=== PATIENT | male | born 1965 | race Caucasian/White ===

== ENCOUNTER → 2018-01-03 | Outpatient (CLI) | payer MEDICARE ==
[2018-01-03 10:13] LABS: BASO # 0.1 x10^3/uL (0.0-0.2); BASO % 1 % (0-3); EOS # 0.2 x10^3/uL (0.0-0.7); EOS % 4 % (0-3); HEMATOCRIT 50.5 % (39.0-53.0); HEMOGLOBIN 17.5 g/dL (13.0-17.5); LYMPH # 2.3 x10^3/uL (1.0-4.8); LYMPH % 40 % (24-48); MEAN CORPUSCULAR HEMOGLOBIN 32 pg (25-35); MEAN CORPUSCULAR HGB CONC 35 g/dL (31-37); MEAN CORPUSCULAR VOLUME 91 fL (79-100); MONO # 0.6 x10^3/uL (0.0-1.1); MONO % 10 % (0-9); NEUT # 2.6 x10^3uL (1.8-7.7); NEUT % 45 % (31-73); PLATELET COUNT 217 x10^3/uL (140-400); RED BLOOD COUNT 5.57 x10^6/uL (4.30-5.70); WHITE BLOOD COUNT 5.8 x10^3/uL (4.0-11.0)
[2018-01-03 14:10] LABS: ALBUMIN 3.9 g/dL (3.4-5.0); ALBUMIN/GLOBULIN RATIO 1.2 (1.0-1.7); ALK PHOS 93 U/L (46-116); ALT (SGPT) 182 U/L (16-63); ANION GAP 9 (6-14); AST (SGOT) 63 U/L (15-37); BLOOD UREA NITROGEN 11 mg/dL (8-26); BUN/CREATININE RATIO 14 (6-20); CALCIUM 9.8 mg/dL (8.5-10.1); CARBON DIOXIDE 27 mmol/L (21-32); CHLORIDE 105 mmol/L (98-107); CREATININE 0.8 mg/dL (0.7-1.3); GFR 101.1; GLUCOSE 88 mg/dL (70-99); SODIUM 141 mmol/L (136-145); TOTAL BILIRUBIN 0.7 mg/dL (0.2-1.0); TOTAL PROTEIN 7.1 g/dL (6.4-8.2)
[2018-01-03 14:11] LABS: VAL ACID 34 mcg/mL (50-100)
== END | disposition home or self-care (01) ==
LOC: LAB 08:42
PROVIDERS: ATTEND Clinical Nurse Specialist Psychiatric/Mental Health, Adult
DX: Z79.899 Other long term (current) drug therapy (principal)
CPT/HCPCS: 36415; 80053; 80061; 80164; 84146; 85025

== ENCOUNTER → 2018-11-27 | Outpatient (CLI) | payer MEDICARE ==
[2018-11-27 09:43] LABS: BASO # 0.1 x10^3/uL (0.0-0.2); BASO % 1 % (0-3); EOS # 0.2 x10^3/uL (0.0-0.7); EOS % 4 % (0-3); LYMPH # 2.2 x10^3/uL (1.0-4.8); LYMPH % 34 % (24-48); MEAN CORPUSCULAR HEMOGLOBIN 31 pg (25-35); MEAN CORPUSCULAR HGB CONC 35 g/dL (31-37); MEAN CORPUSCULAR VOLUME 90 fL (79-100); MONO # 0.7 x10^3/uL (0.0-1.1); MONO % 10 % (0-9); NEUT # 3.3 x10^3uL (1.8-7.7); NEUT % 51 % (31-73); PLATELET COUNT 236 x10^3/uL (140-400); RED BLOOD COUNT 5.44 x10^6/uL (4.30-5.70); RED CELL DISTRIBUTION WIDTH 13.4 % (11.5-14.5); WHITE BLOOD COUNT 6.5 x10^3/uL (4.0-11.0)
[2018-11-27 09:57] LABS: ALBUMIN 3.7 g/dL (3.4-5.0); ALBUMIN/GLOBULIN RATIO 1.2 (1.0-1.7); ALK PHOS 96 U/L (46-116); ALT (SGPT) 113 U/L (16-63); ANION GAP 7 (6-14); AST (SGOT) 37 U/L (15-37); BLOOD UREA NITROGEN 11 mg/dL (8-26); BUN/CREATININE RATIO 14 (6-20); CALCIUM 9.5 mg/dL (8.5-10.1); CARBON DIOXIDE 31 mmol/L (21-32); CHLORIDE 105 mmol/L (98-107); CREATININE 0.8 mg/dL (0.7-1.3); GFR 100.7; GLUCOSE 96 mg/dL (70-99); POTASSIUM 4.2 mmol/L (3.5-5.1); SODIUM 143 mmol/L (136-145); TOTAL BILIRUBIN 0.5 mg/dL (0.2-1.0); TOTAL PROTEIN 6.9 g/dL (6.4-8.2); VAL ACID 37 mcg/mL (50-100)
== END | disposition home or self-care (01) ==
LOC: LAB 09:12
PROVIDERS: ATTEND Clinical Nurse Specialist Psychiatric/Mental Health, Adult
DX: Z79.899 Other long term (current) drug therapy (principal)
CPT/HCPCS: 36415; 80053; 80061; 80164; 84146; 85025

== ENCOUNTER → 2019-05-30 | Outpatient (CLI) | payer MEDICARE ==
[2019-05-30 08:57] LABS: BASO # 0.1 x10^3/uL (0.0-0.2); BASO % 1 % (0-3); EOS # 0.3 x10^3/uL (0.0-0.7); EOS % 5 % (0-3); HEMOGLOBIN 17.2 g/dL (13.0-17.5); LYMPH # 2.4 x10^3/uL (1.0-4.8); LYMPH % 38 % (24-48); MEAN CORPUSCULAR HEMOGLOBIN 31 pg (25-35); MEAN CORPUSCULAR HGB CONC 34 g/dL (31-37); MEAN CORPUSCULAR VOLUME 92 fL (79-100); MONO # 0.6 x10^3/uL (0.0-1.1); MONO % 10 % (0-9); NEUT # 2.9 x10^3uL (1.8-7.7); NEUT % 46 % (31-73); PLATELET COUNT 228 x10^3/uL (140-400); RED BLOOD COUNT 5.58 x10^6/uL (4.30-5.70); RED CELL DISTRIBUTION WIDTH 13.5 % (11.5-14.5); WHITE BLOOD COUNT 6.2 x10^3/uL (4.0-11.0)
[2019-05-30 08:59] LABS: ALBUMIN 3.7 g/dL (3.4-5.0); ALBUMIN/GLOBULIN RATIO 1.2 (1.0-1.7); ALK PHOS 97 U/L (46-116); ALT (SGPT) 135 U/L (16-63); ANION GAP 6 (6-14); AST (SGOT) 62 U/L (15-37); BLOOD UREA NITROGEN 11 mg/dL (8-26); BUN/CREATININE RATIO 14 (6-20); CARBON DIOXIDE 28 mmol/L (21-32); CHLORIDE 105 mmol/L (98-107); CREATININE 0.8 mg/dL (0.7-1.3); GFR 100.7; GLUCOSE 91 mg/dL (70-99); POTASSIUM 3.8 mmol/L (3.5-5.1); SODIUM 139 mmol/L (136-145); TOTAL BILIRUBIN 0.7 mg/dL (0.2-1.0); TOTAL PROTEIN 6.9 g/dL (6.4-8.2)
[2019-05-30 09:00] LABS: VAL ACID 41 mcg/mL (50-100)
== END | disposition home or self-care (01) ==
LOC: LAB 08:05
PROVIDERS: ATTEND Clinical Nurse Specialist Psychiatric/Mental Health, Adult
DX: Z79.899 Other long term (current) drug therapy (principal)
CPT/HCPCS: 36415; 80053; 80061; 80164; 82140; 84146; 85025

== ENCOUNTER → 2019-09-23 | Outpatient (CLI) | payer MEDICARE | END | disposition home or self-care (01) | LOC: LAB 08:12 | PROVIDERS: ATTEND Clinical Nurse Specialist Psychiatric/Mental Health, Adult | DX: F25.0 Schizoaffective disorder, bipolar type (principal) | CPT/HCPCS: 36415; 84146 ==

== ENCOUNTER 2019-11-30 16:32 | Emergency (ER) | payer MEDICARE ==
[~2019-11-30] VITALS: Ht 188 cm; Wt 90.7 kg
--- NOTE | 2019-11-30 17:09 | PHYS DOC ---
Past History Past Medical History: Bipolar, Depression, Schizophrenia (LIZZETH THAKUR MD) Adult General Chief Complaint Chief Complaint: PSYCH EVALUATION HPI HPI 54-year-old male accompanied by the [facility]'s office presents for a court-ordered psychiatric evaluation. Patient has been refusing to take his psychiatric medications. He has diagnosed schizophrenia. The patient has cause lots of trouble his residence and has had the police another several times. His guardian went to the courts and requested this evaluation and likely admission. The patient admits that this is true. He has no medical complaints at this time. (AUBREY ZAMAN DO) Review of Systems Review of Systems Constitutional: Denies fever or chills [] Eyes: Denies change in visual acuity, redness, or eye pain [] HENT: Denies nasal congestion or sore throat [] Respiratory: Denies cough or shortness of breath [] Cardiovascular: No additional information not addressed in HPI [] GI: Denies abdominal pain, nausea, vomiting, bloody stools or diarrhea [] : Denies dysuria or hematuria [] Musculoskeletal: Denies back pain or joint pain [] Integument: Denies rash or skin lesions [] Neurologic: Denies headache, focal weakness or sensory changes [] Endocrine: Denies polyuria or polydipsia [] All other systems were reviewed and found to be within normal limits, except as documented in this note. (AUBREY ZAMAN DO) Physical Exam Physical Exam Constitutional: Well developed, well nourished, no acute distress, non-toxic appearance. [] HENT: Normocephalic, atraumatic, bilateral external ears normal, oropharynx moist, no oral exudates, nose normal. [] Eyes: PERRLA, EOMI, conjunctiva normal, no discharge. [] Neck: Normal range of motion, no tenderness, supple, no stridor. [] Cardiovascular:Heart rate regular rhythm, 3/6 systolic murmur [] Lungs & Thorax: Bilateral breath sounds clear to auscultation [] Abdomen: Bowel sounds normal, soft, no tenderness, no masses, no pulsatile masses. [] Skin: Warm, dry, no erythema, no rash. [] Back: No tenderness, no CVA tenderness. [] Extremities: No tenderness, no cyanosis, no clubbing, ROM intact, no edema. [] Neurologic: Alert and oriented X 3, normal motor function, normal sensory function, no focal deficits noted. [] Psychologic: Affect flat, mood normal. [] (AUBREY ZAMAN DO) EKG EKG [] (AUBREY ZAMAN DO) EKG I interpretation EKG shows a piece of elevated junctional rhythm at 128 bpm. Some wavering baseline. No findings of acute STEMI with contralateral changes. (LIZZETH THAKUR MD) Radiology/Procedures Radiology/Procedures [] (AUBREY ZAMAN DO) Course & Med Decision Making Course & Med Decision Making Pertinent Labs and Imaging studies reviewed. (See chart for details) Patient's workup and psychiatric evaluation is pending. I'm signing him out to Dr. Thakur at 1820. [] (AUBREY ZAMAN DO) Course & Med Decision Making Awaiting tele. psych. eval at 1830. See Tele Psych . report Dr. Paola Pizarro- Recommend in pt. psych. hospital admission until stabilized. ( Involuntary) 2004 Hrs. Counseling Center also recommending in hospital medication stabilization. Pt. agitation- is decreased after Zyprexa and Ativan. Patient was removed from from hard cuffs bilaterally [employer]. Patient requested restraints because he felt like he still may strike out and hurt someone.. Patient put in soft restraints pending placement by counseling center. 2200 hrs. See Honorable Indra Rojas- Inside Sales Person order. Re- assessment by counseling center at 1:15 hours. See re-assessment by Aubrey Ruiz LMSW 05:16 hrs. Check out to Dr. Moya at shift change. Informed by Nursing pt. left the building- 1930hrs. Notification to Brother and Police department to be made. Impression: 1. Schizoaffective Disorder- Bipolar 2. Agitation/ Angelique 3. Hx. of Depression 4. Mild Hypokalemia 3.3 5. Hypertension 6. Hx of Non-compliance with Meds 7. Mild elevation of AST/ALT 60/167 8. Sub- Therapeutic Level Valproic Acid = 3 (LIZZETH THAKUR MD) Course & Med Decision Making Still awaiting for placement. Patient has been doing fine in the ER, DID NOT CAUSE ANY PROBLEM. HE HAS BEEN PLEASANT AND COOPERATIVE. TRANSFERRED CARE OVER TO DR. RASHAWN THAKUR AT SHIFT CHANGE. (CECILIA MOYA DO) Dragon Disclaimer Dragon Disclaimer This electronic medical record was generated, in whole or in part, using a voice recognition dictation system. (AUBREY ZAMAN DO) Departure Departure: Disposition: 01 HOME/RESIDENCE PRIOR TO ADM Condition: STABLE Referrals: FABIOLA ZULETA-Zhao (PCP) Scripts Olanzapine (ZYPREXA) 5 Mg Tablet 5 MG PO HS for aggitation for 30 Days, #30 TAB Prov: LIZZETH THAKUR MD 11/30/19 Divalproex Sodium (DEPAKOTE ER) 500 Mg Tab.er.24h 500 MG PO BID for agitation, #30 TAB.SR Prov: LIZZETH THAKUR MD 11/30/19 Tip Disclaimer This chart was dictated in whole or in part using Voice Recognition software in a busy, high-work load, and often noisy Emergency Department environment. It may contain unintended and wholly unrecognized errors or omissions. (LIZZETH THAKUR MD) Dragon Disclaimer This chart was dictated in whole or in part using Voice Recognition software in a busy, high-work load, and often noisy Emergency Department environment. It may contain unintended and wholly unrecognized errors or omissions. (LIZZETH THAKUR MD) AUBREY ZAMAN DO Nov 30, 2019 17:09 LIZZETH THAKUR MD Nov 30, 2019 18:34 CECILIA MOYA DO Dec 01, 2019 17:31
[2019-11-30 17:49] LABS: BASO # 0.1 x10^3/uL (0.0-0.2); BASO % 1 % (0-3); EOS % 0 % (0-3); HEMOGLOBIN 17.5 g/dL (13.0-17.5); LYMPH # 2.5 x10^3/uL (1.0-4.8); LYMPH % 29 % (24-48); MEAN CORPUSCULAR HEMOGLOBIN 31 pg (25-35); MEAN CORPUSCULAR HGB CONC 34 g/dL (31-37); MEAN CORPUSCULAR VOLUME 89 fL (79-100); MONO # 0.8 x10^3/uL (0.0-1.1); MONO % 9 % (0-9); NEUT # 5.3 x10^3uL (1.8-7.7); NEUT % 61 % (31-73); PLATELET COUNT 336 x10^3/uL (140-400); RED BLOOD COUNT 5.72 x10^6/uL (4.30-5.70); RED CELL DISTRIBUTION WIDTH 13.6 % (11.5-14.5); WHITE BLOOD COUNT 8.7 x10^3/uL (4.0-11.0)
[2019-11-30 17:54] LABS: CALCIUM 10.1 mg/dL (8.5-10.1); GFR 77.6; POTASSIUM 3.3 mmol/L (3.5-5.1)
[2019-11-30 17:59] LABS: ALBUMIN 4.4 g/dL (3.4-5.0); ALBUMIN/GLOBULIN RATIO 1.4 (1.0-1.7); TOTAL BILIRUBIN 0.9 mg/dL (0.2-1.0); TOTAL PROTEIN 7.5 g/dL (6.4-8.2)
[2019-11-30 18:04] LABS: BARBITURATES NEG (NEG); BENZODIAZEPINES NEG (NEG); CANNABINOIDS NEG (NEG); COCAINE NEG (NEG); METHADONE NEG (NEG); OPIATES NEG (NEG); PHENCYCLIDINE NEG (NEG)
[2019-11-30 18:05] LABS: AMPHETAMINE/METHAMPHETAMINE NEG (NEG)
[2019-11-30 18:07] LABS: BACTERIA,URINE 0 /HPF (0-FEW); BILIRUBIN,URINE NEG (NEG); CLARITY,URINE CLEAR; COLOR,URINE AMBER; GLUCOSE,URINE NEG (NEG); GRANULAR CASTS,URINE FEW /HPF; HYALINE CASTS, URINE FEW /HPF; NITRITE,URINE NEG (NEG); RBC,URINE RARE /HPF (0-2); SQUAMOUS EPITHELIAL CELL,UR FEW /LPF; UROBILINOGEN,URINE 0.2 mg/dL (0.2 mg/dL); WBC,URINE 0 /HPF (0-4)
[2019-11-30] MEDS ORDERED: OLAN5TAB3 PO (20:10)
[2019-11-30] MEDS ORDERED: DIVA500T4 PO (20:10)
[2019-11-30] MEDS ORDERED: DIVALPROEX ER 500 MG TAB.ER.24H PO ONE (20:52)
[2019-11-30] MEDS ORDERED: OLANZapine 2.5 MG TABLET PO ONE (21:00)
[2019-11-30] MEDS ORDERED: LORazepam 1 MG TABLET PO ONE (21:00)
[2019-11-30] MEDS ORDERED: POTASSIUM CHLORIDE 20 MEQ TABLET.ER. PO ONE (21:00)
[2019-11-30] MEDS: DIVALPROEX ER 500 MG TAB.ER.24H PO SCH (21:04)
[2019-11-30 21:24] LABS: VAL ACID 3 mcg/mL (50-100)
[2019-11-30] MEDS ORDERED: cloNIDine TTS-2 1 PATCH PATCH TD ONE (21:30)
--- NOTE | 2019-12-01 02:04 | EKG ---
[address] [address] Test Date: 2019-11-30 Test Time: 17:25:02 Pat Name: BLAISE BONNER Department: Room: Gender: M [employer] Former: : 1965 Requested By: CHRIS ZAMAN Order Number: [id number] Reading MD: Measurements Intervals [place] Rate: 128 P: GA: QRS: 8 QRSD: 80 T: 41 QT: 302 QTc: 444 Interpretive Statements ACCELERATED JUNCTIONAL RHYTHM ABNORMAL ECG RI6.01 No previous ECG available for comparison
[2019-12-01 04:20] VITALS: BP 146/93
[2019-12-01] MEDS: DIVALPROEX ER 500 MG TAB.ER.24H PO SCH (09:00)
== END 2019-12-01 19:10 | disposition other institution (70) ==
LOC: ER 16:32
DX: F25.0 Schizoaffective disorder, bipolar type (principal); F32.9 Major depressive disorder, single episode, unspecified; E87.6 Hypokalemia; I10 Essential (primary) hypertension; Z91.14 Patient's other noncompliance with medication regimen; R79.89 Other specified abnormal findings of blood chemistry
CPT/HCPCS: 36415; 80053; 80164; 80307; 81001; 85025; 93005; 99285

== ENCOUNTER → 2020-09-25 | Outpatient (CLI) | payer MEDICARE ==
[~2020-09-25] MED LIST: DIVA500T4 PO; OLAN5TAB3 PO
[2020-09-25 10:06] LABS: BASO # 0.1 x10^3/uL (0.0-0.2); BASO % 1 % (0-3); EOS # 0.3 x10^3/uL (0.0-0.7); EOS % 5 % (0-3); HEMATOCRIT 50.9 % (39.0-53.0); HEMOGLOBIN 17.1 g/dL (13.0-17.5); LYMPH # 2.5 x10^3/uL (1.0-4.8); LYMPH % 38 % (24-48); MEAN CORPUSCULAR HEMOGLOBIN 31 pg (25-35); MEAN CORPUSCULAR HGB CONC 34 g/dL (31-37); MEAN CORPUSCULAR VOLUME 92 fL (79-100); MONO # 0.6 x10^3/uL (0.0-1.1); MONO % 9 % (0-9); NEUT # 3.2 x10^3uL (1.8-7.7); NEUT % 48 % (31-73); PLATELET COUNT 228 x10^3/uL (140-400); RED BLOOD COUNT 5.54 x10^6/uL (4.30-5.70); RED CELL DISTRIBUTION WIDTH 13.4 % (11.5-14.5); WHITE BLOOD COUNT 6.7 x10^3/uL (4.0-11.0)
[2020-09-25 10:21] LABS: ALBUMIN 3.8 g/dL (3.4-5.0); ALBUMIN/GLOBULIN RATIO 1.2 (1.0-1.7); ALK PHOS 104 U/L (46-116); ALT (SGPT) 200 U/L (16-63); ANION GAP 10 (6-14); AST (SGOT) 93 U/L (15-37); BLOOD UREA NITROGEN 8 mg/dL (8-26); BUN/CREATININE RATIO 10 (6-20); CALCIUM 10.4 mg/dL (8.5-10.1); CARBON DIOXIDE 26 mmol/L (21-32); CHLORIDE 105 mmol/L (98-107); CREATININE 0.8 mg/dL (0.7-1.3); GLUCOSE 101 mg/dL (70-99); POTASSIUM 4.1 mmol/L (3.5-5.1); SODIUM 141 mmol/L (136-145); TOTAL BILIRUBIN 0.5 mg/dL (0.2-1.0); TOTAL PROTEIN 7.1 g/dL (6.4-8.2)
[2020-09-25 10:23] LABS: VAL ACID 36 mcg/mL (50-100)
== END ==
LOC: LAB 09:09
PROVIDERS: ATTEND Clinical Nurse Specialist Psychiatric/Mental Health, Adult
DX: Z79.899 Other long term (current) drug therapy (principal)
CPT/HCPCS: 36415; 80053; 80061; 80164; 84146; 85025

== ENCOUNTER → 2021-03-08 | Outpatient (CLI) | payer MEDICARE ==
[2021-03-08 09:42] LABS: BASO # 0.1 x10^3/uL (0.0-0.2); BASO % 1 % (0-3); EOS # 0.3 x10^3/uL (0.0-0.7); EOS % 4 % (0-3); HEMOGLOBIN 16.9 g/dL (13.0-17.5); LYMPH # 2.4 x10^3/uL (1.0-4.8); LYMPH % 37 % (24-48); MEAN CORPUSCULAR HEMOGLOBIN 31 pg (25-35); MEAN CORPUSCULAR HGB CONC 35 g/dL (31-37); MEAN CORPUSCULAR VOLUME 90 fL (79-100); MONO # 0.7 x10^3/uL (0.0-1.1); MONO % 10 % (0-9); NEUT # 3.1 x10^3uL (1.8-7.7); NEUT % 48 % (31-73); PLATELET COUNT 237 x10^3/uL (140-400); RED BLOOD COUNT 5.44 x10^6/uL (4.30-5.70); RED CELL DISTRIBUTION WIDTH 13.5 % (11.5-14.5); WHITE BLOOD COUNT 6.5 x10^3/uL (4.0-11.0)
[2021-03-08 10:02] LABS: ALBUMIN 3.6 g/dL (3.4-5.0); ALBUMIN/GLOBULIN RATIO 1.1 (1.0-1.7); ALK PHOS 98 U/L (46-116); ALT (SGPT) 217 U/L (16-63); ANION GAP 8 (6-14); AST (SGOT) 111 U/L (15-37); BLOOD UREA NITROGEN 8 mg/dL (8-26); BUN/CREATININE RATIO 10 (6-20); CALCIUM 9.8 mg/dL (8.5-10.1); CARBON DIOXIDE 26 mmol/L (21-32); CHLORIDE 107 mmol/L (98-107); CREATININE 0.8 mg/dL (0.7-1.3); GLUCOSE 108 mg/dL (70-99); SODIUM 141 mmol/L (136-145); TOTAL BILIRUBIN 0.7 mg/dL (0.2-1.0); VAL ACID 25 mcg/mL (50-100)
== END ==
LOC: LAB 08:52
PROVIDERS: ATTEND Clinical Nurse Specialist Psychiatric/Mental Health, Adult
DX: Z79.899 Other long term (current) drug therapy (principal)
CPT/HCPCS: 36415; 80053; 80061; 80164; 82140; 84146; 85025

== ENCOUNTER → 2021-04-08 | Outpatient (CLI) | payer MEDICARE ==
--- NOTE | 2021-04-08 14:47 | RAD ---
EXAM: CT Head without IV contrast CLINICAL HISTORY: HEAD'S PALSY COMPARISON: None. TECHNIQUE: Routine CT of the head without contrast. PQRS compliance statement - One or more of the following individualized dose reduction techniques wer e utilized for this study: 1. Automated exposure control 2. Adjustment of the mA and/or kV according to patient size 3. Use of iterative reconstruction technique FINDINGS: There is no evidence of hemorrhage, mass or extra-axial fluid collection. Blankenship-white differentiation is maintained with no evidence of edema. There is no mass effect or shift of the intracranial structures. The ventricles, basilar cisterns and cortical sulci are normal in size and configuration for the diana ents stated age. The cerebellum and brainstem are unremarkable. The calvarium demonstrates no evidence of fracture or focal lesion. There is normal aeration of the visualized paranasal sinuses and mastoid air cells. The visualized portions of the orbits are normal. IMPRESSION: No evidence for acute intracranial process. Electronically signed by: Delfino Field MD (04/08/2021 2:45 PM) [facility]
[2021-04-08 15:17] LABS: BASO # 0.1 x10^3/uL (0.0-0.2); BASO % 1 % (0-3); EOS % 1 % (0-3); HEMATOCRIT 50.8 % (39.0-53.0); HEMOGLOBIN 17.5 g/dL (13.0-17.5); LYMPH # 1.5 x10^3/uL (1.0-4.8); LYMPH % 19 % (24-48); MEAN CORPUSCULAR HEMOGLOBIN 31 pg (25-35); MEAN CORPUSCULAR HGB CONC 34 g/dL (31-37); MEAN CORPUSCULAR VOLUME 90 fL (79-100); MONO # 0.6 x10^3/uL (0.0-1.1); MONO % 7 % (0-9); NEUT # 5.8 x10^3uL (1.8-7.7); NEUT % 73 % (31-73); PLATELET COUNT 263 x10^3/uL (140-400); RED BLOOD COUNT 5.64 x10^6/uL (4.30-5.70); RED CELL DISTRIBUTION WIDTH 13.7 % (11.5-14.5)
[2021-04-08 15:23] LABS: ALBUMIN/GLOBULIN RATIO 1.2 (1.0-1.7); C REACTIVE PROTEIN 3.8 mg/L (0-3.3); CALCIUM 10.3 mg/dL (8.5-10.1); CREATININE 0.9 mg/dL (0.7-1.3); GFR 87.3; TOTAL BILIRUBIN 0.6 mg/dL (0.2-1.0); TOTAL PROTEIN 7.4 g/dL (6.4-8.2)
[2021-04-08 16:28] LABS: SEDIMENTATION RATE 2 (0-15)
== END ==
LOC: CT 14:29
PROVIDERS: ATTEND Family Medicine
DX: G51.0 Bell's palsy (principal)
CPT/HCPCS: 36415; 70450; 80053; 83605; 85025; 85651; 86140

== ENCOUNTER → 2021-04-09 | Outpatient (CLI) | payer MEDICARE ==
[2021-04-09] MEDS: IOHEXOL 300 MG/ML 75 ML VIAL. IV ONE (10:10)
--- NOTE | 2021-04-09 10:43 | RAD ---
Exam Date: 04/09/2021 10:[address] ABDOMEN+PELVIS WO+W Indication: Reason: ELEVATED C REACTIVE PROTEIN / Spl. Instructions: / History: TECHNIQUE: CT examination of the abdomen and pelvis was performed before and following the administr ation of nonionic intravenous contrast. One or more of the following dose reduction techniques were utilized: *Automated exposure control (AEC) *Adjustment of mA and/or kV according to patient size *Use of iterative reconstruction technique *CT scan done according to ALARA, or ALARA/IMAGE GENTLY FINDINGS: The visualized lung bases are clear. Status post cholecystectomy. There are bilateral renal cysts. The liver, spleen, pancreas, adrenal glands and kidneys are otherwise normal. Urinary bladder is normal in appearance. Prostate gland is enlarged up to 5.5 cm with calcifications. There is no bowel obstruction or inflammation. The appendix is normal. Mild atherosclerotic calcifications are seen. No lymphadenopathy or ascites is seen. Degenerative changes are seen in the spine. IMPRESSION: No evidence of acute intra-abdominal pathology. Electronically signed by: Reilly Wood MD (04/09/2021 10:40 AM) [facility]
== END ==
LOC: CT 09:42
PROVIDERS: ATTEND Family Medicine
DX: R79.82 Elevated C-reactive protein (CRP) (principal); N28.1 Cyst of kidney, acquired
CPT/HCPCS: 74178; Q9967

== ENCOUNTER → 2021-06-28 | Outpatient (CLI) | payer MEDICARE ==
[2021-06-28 12:01] LABS: BASO # 0.1 x10^3/uL (0.0-0.2); BASO % 2 % (0-3); EOS # 0.3 x10^3/uL (0.0-0.7); EOS % 5 % (0-3); HEMATOCRIT 49.6 % (39.0-53.0); HEMOGLOBIN 16.9 g/dL (13.0-17.5); LYMPH # 2.4 x10^3/uL (1.0-4.8); LYMPH % 38 % (24-48); MEAN CORPUSCULAR HEMOGLOBIN 31 pg (25-35); MEAN CORPUSCULAR HGB CONC 34 g/dL (31-37); MEAN CORPUSCULAR VOLUME 92 fL (79-100); MONO # 0.6 x10^3/uL (0.0-1.1); MONO % 9 % (0-9); NEUT # 2.9 x10^3uL (1.8-7.7); NEUT % 46 % (31-73); PLATELET COUNT 245 x10^3/uL (140-400); RED BLOOD COUNT 5.37 x10^6/uL (4.30-5.70); RED CELL DISTRIBUTION WIDTH 13.7 % (11.5-14.5); WHITE BLOOD COUNT 6.3 x10^3/uL (4.0-11.0)
[2021-06-28 12:31] LABS: ALBUMIN 3.7 g/dL (3.4-5.0); ALBUMIN/GLOBULIN RATIO 1.3 (1.0-1.7); ALK PHOS 98 U/L (46-116); ALT (SGPT) 141 U/L (16-63); ANION GAP 9 (6-14); AST (SGOT) 72 U/L (15-37); BLOOD UREA NITROGEN 9 mg/dL (8-26); BUN/CREATININE RATIO 13 (6-20); CALCIUM 9.5 mg/dL (8.5-10.1); CARBON DIOXIDE 27 mmol/L (21-32); CHLORIDE 106 mmol/L (98-107); CREATININE 0.7 mg/dL (0.7-1.3); GFR 116.2; GLUCOSE 96 mg/dL (70-99); POTASSIUM 3.9 mmol/L (3.5-5.1); SODIUM 142 mmol/L (136-145); TOTAL BILIRUBIN 0.6 mg/dL (0.2-1.0); TOTAL PROTEIN 6.6 g/dL (6.4-8.2)
[2021-06-28 12:32] LABS: VAL ACID 43 mcg/mL (50-100)
== END ==
LOC: LAB 09:00
PROVIDERS: ATTEND Clinical Nurse Specialist Psychiatric/Mental Health, Adult
DX: Z79.899 Other long term (current) drug therapy (principal)
CPT/HCPCS: 36415; 80053; 80061; 80164; 84146; 85025

== ENCOUNTER → 2022-01-10 | Outpatient (CLI) | payer MEDICARE ==
[2022-01-10 09:26] LABS: BASO # 0.1 x10^3/uL (0.0-0.2); BASO % 1 % (0-3); EOS # 0.3 x10^3/uL (0.0-0.7); EOS % 4 % (0-3); HEMATOCRIT 50.2 % (39.0-53.0); HEMOGLOBIN 17.2 g/dL (13.0-17.5); LYMPH # 2.5 x10^3/uL (1.0-4.8); LYMPH % 39 % (24-48); MEAN CORPUSCULAR HEMOGLOBIN 31 pg (25-35); MEAN CORPUSCULAR HGB CONC 34 g/dL (31-37); MEAN CORPUSCULAR VOLUME 92 fL (79-100); MONO # 0.6 x10^3/uL (0.0-1.1); MONO % 9 % (0-9); NEUT % 47 % (31-73); PLATELET COUNT 215 x10^3/uL (140-400); RED BLOOD COUNT 5.48 x10^6/uL (4.30-5.70); RED CELL DISTRIBUTION WIDTH 13.6 % (11.5-14.5); WHITE BLOOD COUNT 6.5 x10^3/uL (4.0-11.0)
[2022-01-10 10:02] LABS: ALBUMIN 3.6 g/dL (3.4-5.0); ALBUMIN/GLOBULIN RATIO 1.2 (1.0-1.7); ALK PHOS 100 U/L (46-116); ALT (SGPT) 159 U/L (16-63); ANION GAP 10 (6-14); AST (SGOT) 82 U/L (15-37); BLOOD UREA NITROGEN 8 mg/dL (8-26); BUN/CREATININE RATIO 11 (6-20); CALCIUM 9.8 mg/dL (8.5-10.1); CARBON DIOXIDE 25 mmol/L (21-32); CHLORIDE 104 mmol/L (98-107); CREATININE 0.7 mg/dL (0.7-1.3); GFR 116.2; GLUCOSE 119 mg/dL (70-99); SODIUM 139 mmol/L (136-145); TOTAL BILIRUBIN 0.6 mg/dL (0.2-1.0); TOTAL PROTEIN 6.7 g/dL (6.4-8.2); VAL ACID 27 mcg/mL (50-100)
[2022-01-10 15:27] LABS: CHOLESTEROL/HDL RATIO 8.3
== END ==
LOC: LAB 08:36
PROVIDERS: ATTEND Clinical Nurse Specialist Psychiatric/Mental Health, Adult
DX: Z79.899 Other long term (current) drug therapy (principal)
CPT/HCPCS: 36415; 80053; 80061; 80164; 82140; 84146; 85025

== ENCOUNTER → 2022-04-07 | Outpatient (CLI) | payer MEDICARE ==
[2022-04-07 15:50] LABS: ALBUMIN 3.9 g/dL (3.4-5.0); ALBUMIN/GLOBULIN RATIO 1.4 (1.0-1.7); CALCIUM 9.9 mg/dL (8.5-10.1); CREATININE 0.7 mg/dL (0.7-1.3); GFR 116.2; POTASSIUM 4.2 mmol/L (3.5-5.1); TOTAL BILIRUBIN 0.6 mg/dL (0.2-1.0); TOTAL PROTEIN 6.6 g/dL (6.4-8.2)
== END ==
LOC: LAB 08:14
PROVIDERS: ATTEND Clinical Nurse Specialist Psychiatric/Mental Health, Adult
DX: F25.0 Schizoaffective disorder, bipolar type (principal)
CPT/HCPCS: 36415; 80053; 84146